=== PATIENT | female | born 1995 | race Caucasian/White ===

== ENCOUNTER 2021-05-14 09:09 | Emergency (ER) | payer OTHER ==
[~2021-05-14] VITALS: Ht 167.6 cm; Wt 88.2 kg
[2021-05-14] MEDS ORDERED: SUMA100T PO (09:26)
[2021-05-14] MEDS ORDERED: METOCLOPRAMIDE HCL 5 MG/ML 2 ML VIAL IVP ONE (10:30)
[2021-05-14] MEDS ORDERED: ACETAMINOPHEN 500 MG TABLET PO ONE (10:30)
[2021-05-14] MEDS ORDERED: SODIUM CHLORIDE 0.9% 1,000 ML IV ONE (10:30)
[2021-05-14] MEDS ORDERED: DiphenhydrAMINE HCL 50 MG/ML VIAL IVP ONE (10:30)
[2021-05-14] MEDS ORDERED: ONDANSETRON HCL 4 MG/2 ML VIAL IVP ONE (10:30)
[2021-05-14 10:53] LABS: BASOPHILS % (AUTO) 0.4 % (0.0-2.0); HEMATOCRIT 42.4 % (36-46); HEMOGLOBIN 14.3 g/dL (12.0-16.0); LYMPHOCYTES # (AUTO) 1.7 K/uL (1.0-4.8); LYMPHOCYTES % (AUTO) 19.3 % (22.0-44.0); MEAN CORPUSCULAR HEMOGLOBIN 29.7 pg (26.0-34.0); MEAN CORPUSCULAR HGB CONC 33.8 G/dL (31.0-37.0); MEAN CORPUSCULAR VOLUME 88 fL (80-100); MONOCYTES # (AUTO) 0.4 K/uL (0.1-1.0); MONOCYTES % (AUTO) 4.2 % (2.0-9.0); NEUTROPHILS # (AUTO) 6.6 K/uL (1.8-7.7); NEUTROPHILS % (AUTO) 75.1 % (40.0-70.0); PLATELET COUNT (AUTO) 320 K/uL (150-450); RED BLOOD CELL COUNT(AUTO) 4.82 MIL/uL (4.00-5.20); RED CELL DISTRIBUTION WIDTH 12.1 % (11.5-14.5)
[2021-05-14 11:03] LABS: ANION GAP 7 mmol/L (8-16); CALCIUM, TOTAL 8.8 mg/dL (8.8-10.5); CARBON DIOXIDE 27 mmol/L (22-29); CHLORIDE 104 mmol/L (98-107); CREATININE 0.76 mg/dL (0.60-1.30); GLOMERULAR FILTR. RATE CALC > 60 mL/min (>60); GLUCOSE,RANDOM 96 mg/dL (70-110); POTASSIUM 3.7 mmol/L (3.5-5.1); SODIUM SERUM 138 mmol/L (136-145); UREA NITROGEN, BLOOD 9 mg/dL (7-18)
[2021-05-14 11:13] LABS: ALANINE AMINOTRANSFERASE 27 U/L (12-78); ALKALINE PHOSPHATASE 64 U/L (46-116); ASPARTATE AMINOTRANSFERASE 18 U/L (15-37); BILIRUBIN,TOTAL 0.7 mg/dL (0.1-1.0); HCG,QUANTITATIVE < 1 mIU/mL (0-6); LIPASE 78 U/L (73-393); TOTAL PROTEIN, SERUM 7.9 g/dL (6.4-8.2)
[2021-05-14 11:20] VITALS: BP 111/64
[2021-05-14 11:22] LABS: APPEARANCE,URINE CLEAR (CLEAR); BILIRUBIN,URINE NEGATIVE (NEGATIVE); GLUCOSE, URINE (UA) NEGATIVE (NEGATIVE); KETONES,URINE NEGATIVE (NEGATIVE); LEUKOCYTE ESTERASE ,URINE NEGATIVE (NEGATIVE); NITRATE,URINE NEGATIVE (NEGATIVE); OCCULT BLOOD,URINE NEGATIVE (NEGATIVE); PH,URINE 7.5 (5.0-8.0); PROTEIN,URINE NEGATIVE (NEGATIVE)
== END 2021-05-14 12:38 | disposition home or self-care (01) ==
LOC: EMS 09:09
DX: G43.909 Migraine, unspecified, not intractable, without status migrainosus (principal); Z79.899 Other long term (current) drug therapy
CPT/HCPCS: 36415; 70450; 80053; 81003; 83690; 84702; 85025; 96361; 96374; 96375; 99284; J1200; J2405; J2765; J7030

== ENCOUNTER 2021-06-04 17:19 | Emergency (ER) | payer OTHER ==
[~2021-06-04] VITALS: Ht 167.6 cm; Wt 87.3 kg
[~2021-06-04 17:19] MED LIST: SUMA100T PO
[2021-06-04] MEDS ORDERED: DiphenhydrAMINE HCL 25 MG CAPSULE PO ONE (18:00)
[2021-06-04] MEDS ORDERED: DEXAMETHASONE 4 MG TABLET PO ONE (19:15)
[2021-06-04] MEDS ORDERED: DEXAMETHASONE SOD PHOS 4 MG/ML 5 ML VIAL IVP ONE (19:15)
[2021-06-04 19:17] VITALS: BP 109/64
== END 2021-06-04 19:35 | disposition home or self-care (01) ==
LOC: EMS 17:21
DX: L50.9 Urticaria, unspecified (principal); G43.909 Migraine, unspecified, not intractable, without status migrainosus
CPT/HCPCS: 99283; J8540

== ENCOUNTER 2021-08-30 15:48 | Emergency (ER) | payer OTHER ==
[~2021-08-30] VITALS: Ht 170.2 cm; Wt 90.0 kg
[2021-08-30 17:04] VITALS: BP 123/72
[2021-08-30 17:18] LABS: COVID AG,FIA SOURCE NASOPHARYNGEAL
[2021-08-30 17:44] LABS: INFLUENZA TYPE A NEGATIVE FOR TYPE A (NEGATIVE); INFLUENZA TYPE B NEGATIVE FOR TYPE B (NEGATIVE)
== END 2021-08-30 18:19 | disposition home or self-care (01) ==
LOC: EMS 15:51
DX: J06.9 Acute upper respiratory infection, unspecified (principal); Z20.822 Contact with and (suspected) exposure to COVID-19
CPT/HCPCS: 87804; 99283

== ENCOUNTER 2022-09-11 18:45 | Emergency (ER) | payer OTHER ==
[~2022-09-11] VITALS: Ht 170.2 cm; Wt 54.5 kg
[2022-09-11 18:53] LABS: COVID AG,FIA SOURCE NASAL SWAB
[2022-09-11 19:13] LABS: INFLUENZA TYPE A NEGATIVE FOR TYPE A (NEGATIVE); INFLUENZA TYPE B POSITIVE FOR TYPE B (NEGATIVE)
[2022-09-11] MEDS ORDERED: ACETAMINOPHEN 325 MG TABLET PO ONE (19:15)
[2022-09-11] MEDS ORDERED: ONDANSETRON HCL 4 MG TABLET PO ONE (20:15)
[2022-09-11 21:29] VITALS: BP 99/63
[2022-09-11] MEDS ORDERED: ONDA-104 PO (22:15)
== END 2022-09-12 06:35 | disposition home or self-care (01) ==
LOC: EMS 18:47
DX: J10.1 Influenza due to other identified influenza virus with other respiratory manifestations (principal); G43.909 Migraine, unspecified, not intractable, without status migrainosus; Z20.822 Contact with and (suspected) exposure to COVID-19
CPT/HCPCS: 99284; 71045; 87426; 87804; Q0162

== ENCOUNTER 2023-09-21 12:42 | Inpatient (IN) | payer OTHER ==
[~2023-09-21] VITALS: Ht 170.2 cm; Wt 68.2 kg
[~2023-09-21 12:42] MED LIST changes: +ONDA-104 PO; -SUMA100T PO; +SUMA100T21 PO
[2023-09-21] MEDS ORDERED: TOPI25 PO (12:52)
[2023-09-21] MEDS ORDERED: LAMO25TA36 PO (12:52)
[2023-09-21] MEDS ORDERED: SODIUM CHLORIDE 0.9% 1,000 ML IV ONE (14:30)
[2023-09-21 14:55] LABS: BASOPHILS % (AUTO) 0.7 % (0.0-2.0); EOSINOPHILS % (AUTO) 2.1 % (1.0-6.0); HEMATOCRIT 40.8 % (36-46); LYMPHOCYTES # (AUTO) 0.4 K/uL (1.0-4.8); LYMPHOCYTES % (AUTO) 6.4 % (22.0-44.0); MEAN CORPUSCULAR HEMOGLOBIN 30.4 pg (26.0-34.0); MEAN CORPUSCULAR HGB CONC 34.3 G/dL (31.0-37.0); MEAN CORPUSCULAR VOLUME 88 fL (80-100); MONOCYTES # (AUTO) 0.3 K/uL (0.1-1.0); MONOCYTES % (AUTO) 4.2 % (2.0-9.0); NEUTROPHILS # (AUTO) 5.8 K/uL (1.8-7.7); NEUTROPHILS % (AUTO) 86.6 % (40.0-70.0); PLATELET COUNT (AUTO) 239 K/uL (150-450); RED BLOOD CELL COUNT(AUTO) 4.62 MIL/uL (4.00-5.20); RED CELL DISTRIBUTION WIDTH 12.1 % (11.5-14.5); WHITE BLOOD COUNT (AUTO) 6.7 K/uL (4.5-11.0)
[2023-09-21 14:57] LABS: ERYTHROCYTE SEDIMENTATION RATE 11 MM/HR (0-20)
[2023-09-21 15:03] LABS: COVID AG,FIA SOURCE NASAL SWAB
[2023-09-21 15:08] LABS: ANION GAP 10 mmol/L (8-16); CALCIUM, TOTAL 8.8 mg/dL (8.8-10.5); CARBON DIOXIDE 23 mmol/L (22-29); CHLORIDE 103 mmol/L (98-107); CREATININE 0.84 mg/dL (0.60-1.30); GLOMERULAR FILTR. RATE CALC > 60 mL/min (>60); GLUCOSE,RANDOM 106 mg/dL (70-110); POTASSIUM 3.7 mmol/L (3.5-5.1); SODIUM SERUM 136 mmol/L (136-145); UREA NITROGEN, BLOOD 8 mg/dL (7-18)
[2023-09-21 15:13] LABS: ALANINE AMINOTRANSFERASE 20 U/L (12-78); ALBUMIN 3.8 g/dL (3.4-5.0); ALKALINE PHOSPHATASE 71 U/L (46-116); ASPARTATE AMINOTRANSFERASE 15 U/L (15-37); BILIRUBIN,TOTAL 0.3 mg/dL (0.1-1.0); TOTAL PROTEIN, SERUM 7.8 g/dL (6.4-8.2)
[2023-09-21 15:28] LABS: SARS-COV2 (COVID) ANTIGEN,FIA Negative (Negative)
[2023-09-21 15:29] LABS: PREGNANCY RESULT, SERUM NEGATIVE (NEGATIVE)
[2023-09-21 15:44] LABS: TROPONIN I-HIGH SENSITIVITY 5 ng/L (<51)
[2023-09-21 15:59] LABS: RAPID PLASMA REAGIN NONREACTIVE (NONREACTIVE)
[2023-09-21] MEDS ORDERED: ACETAMINOPHEN 500 MG TABLET PO ONE (16:00)
[2023-09-21] MEDS ORDERED: HYDROCODONE/ACETAMINOPHEN 5-325 MG TABLET PO PRN (16:30)
[2023-09-21] MEDS ORDERED: MORPHINE SULFATE 2 MG/ML SYRINGE IVP PRN (16:30)
[2023-09-21] MEDS ORDERED: ONDANSETRON HCL 4 MG/2 ML VIAL IVP PRN (16:30)
[2023-09-21] MEDS ORDERED: ZOLPIDEM TARTRATE 5 MG TABLET PO PRN (16:30)
[2023-09-21] MEDS ORDERED: ACETAMINOPHEN 325 MG TABLET PO PRN (16:30)
[2023-09-21] MEDS ORDERED: BISACODYL 10 MG RECTAL RECTAL SUPPOSITORY PR PRN (16:30)
[2023-09-21] MEDS ORDERED: MAGNESIUM HYDROXIDE SUSPENSION 30 ML UDCUP PO PRN (16:30)
[2023-09-21] MEDS ORDERED: PredniSONE 20 MG TABLET PO ONE (16:30)
[2023-09-21] MEDS: DOCUSATE SODIUM 100 MG CAPSULE PO SCH (20:55)
[2023-09-21] MEDS: HydrOXYzine HCL 25 MG TABLET PO SCH (21:04)
[2023-09-22 06:28] LABS: BASOPHILS % (AUTO) 0.4 % (0.0-2.0); EOSINOPHILS % (AUTO) 0.3 % (1.0-6.0); HEMATOCRIT 39.3 % (36-46); HEMOGLOBIN 13.7 g/dL (12.0-16.0); LYMPHOCYTES # (AUTO) 0.7 K/uL (1.0-4.8); LYMPHOCYTES % (AUTO) 9.3 % (22.0-44.0); MEAN CORPUSCULAR HEMOGLOBIN 30.6 pg (26.0-34.0); MEAN CORPUSCULAR HGB CONC 34.8 G/dL (31.0-37.0); MEAN CORPUSCULAR VOLUME 88 fL (80-100); MONOCYTES # (AUTO) 0.3 K/uL (0.1-1.0); MONOCYTES % (AUTO) 3.8 % (2.0-9.0); NEUTROPHILS # (AUTO) 6.4 K/uL (1.8-7.7); PLATELET COUNT (AUTO) 261 K/uL (150-450); RED BLOOD CELL COUNT(AUTO) 4.47 MIL/uL (4.00-5.20); RED CELL DISTRIBUTION WIDTH 12.1 % (11.5-14.5); WHITE BLOOD COUNT (AUTO) 7.4 K/uL (4.5-11.0)
[2023-09-22 06:29] LABS: NEUTROPHILS % (AUTO) 86.2 % (40.0-70.0)
[2023-09-22 06:36] LABS: ANION GAP 8 mmol/L (8-16); CALCIUM, TOTAL 8.8 mg/dL (8.8-10.5); CARBON DIOXIDE 25 mmol/L (22-29); CHLORIDE 105 mmol/L (98-107); CREATININE 0.72 mg/dL (0.60-1.30); GLOMERULAR FILTR. RATE CALC > 60 mL/min (>60); GLUCOSE,RANDOM 116 mg/dL (70-110); POTASSIUM 3.8 mmol/L (3.5-5.1); SODIUM SERUM 138 mmol/L (136-145); UREA NITROGEN, BLOOD 8 mg/dL (7-18)
[2023-09-22] MEDS: PredniSONE 20 MG TABLET PO SCH (08:15)
[2023-09-22] MEDS: HydrOXYzine HCL 25 MG TABLET PO SCH ×2 (08:15→21:54)
[2023-09-22] MEDS: DOCUSATE SODIUM 100 MG CAPSULE PO SCH ×2 (08:19→21:00)
[2023-09-22] MEDS: PANTOPRAZOLE SODIUM 40 MG DR TABLET PO SCH (08:20)
[2023-09-22 10:00] VITALS: BP 121/69; PULSE 89; RESP 18; TEMP 97.6
[2023-09-22] MEDS: CLOBETASOL 0.05% 15 GM CREAM TP SCH ×3 (11:23→21:55)
[2023-09-22 12:46] VITALS: BP 105/55; PULSE 78; RESP 18; TEMP 98
[2023-09-22 15:36] VITALS: BP 102/53; PULSE 72; RESP 18; TEMP 97.4
[2023-09-22 19:27] VITALS: BP 117/65; PULSE 83; RESP 18; TEMP 98.4
[2023-09-22] MEDS: HYDROCORTISONE 2.5% 30 GM CREAM TP SCH (21:55)
[2023-09-22 23:21] VITALS: BP 109/55; PULSE 57; RESP 18; TEMP 98.2
[2023-09-23 04:37] VITALS: BP 93/47; PULSE 58; RESP 18; TEMP 98.1
[2023-09-23 06:39] LABS: BASOPHILS % (AUTO) 0.8 % (0.0-2.0); HEMATOCRIT 37.4 % (36-46); HEMOGLOBIN 13.2 g/dL (12.0-16.0); LYMPHOCYTES # (AUTO) 1.4 K/uL (1.0-4.8); LYMPHOCYTES % (AUTO) 17.2 % (22.0-44.0); MEAN CORPUSCULAR HGB CONC 35.2 G/dL (31.0-37.0); MEAN CORPUSCULAR VOLUME 88 fL (80-100); MONOCYTES # (AUTO) 0.7 K/uL (0.1-1.0); MONOCYTES % (AUTO) 9.1 % (2.0-9.0); NEUTROPHILS # (AUTO) 5.6 K/uL (1.8-7.7); NEUTROPHILS % (AUTO) 68.9 % (40.0-70.0); PLATELET COUNT (AUTO) 252 K/uL (150-450); RED BLOOD CELL COUNT(AUTO) 4.25 MIL/uL (4.00-5.20); RED CELL DISTRIBUTION WIDTH 11.9 % (11.5-14.5); WHITE BLOOD COUNT (AUTO) 8.1 K/uL (4.5-11.0)
[2023-09-23 07:03] LABS: ANION GAP 10 mmol/L (8-16); CALCIUM, TOTAL 8.7 mg/dL (8.8-10.5); CARBON DIOXIDE 26 mmol/L (22-29); CHLORIDE 106 mmol/L (98-107); CREATININE 0.84 mg/dL (0.60-1.30); GLOMERULAR FILTR. RATE CALC > 60 mL/min (>60); GLUCOSE,RANDOM 96 mg/dL (70-110); POTASSIUM 3.6 mmol/L (3.5-5.1); SODIUM SERUM 142 mmol/L (136-145); UREA NITROGEN, BLOOD 11 mg/dL (7-18)
[2023-09-23 07:57] VITALS: BP 118/75; PULSE 78; RESP 17; TEMP 98.6
[2023-09-23] MEDS: PredniSONE 20 MG TABLET PO SCH (08:43)
[2023-09-23] MEDS: HydrOXYzine HCL 25 MG TABLET PO SCH ×2 (08:44→20:34)
[2023-09-23] MEDS: DOCUSATE SODIUM 100 MG CAPSULE PO SCH ×2 (08:44→20:43)
[2023-09-23] MEDS: PANTOPRAZOLE SODIUM 40 MG DR TABLET PO SCH (08:44)
[2023-09-23] MEDS: CLOBETASOL 0.05% 15 GM CREAM TP SCH ×3 (10:37→20:34)
[2023-09-23] MEDS: HYDROCORTISONE 2.5% 30 GM CREAM TP SCH ×2 (10:37→20:34)
[2023-09-23 11:56] VITALS: BP 108/65; PULSE 70; RESP 18; TEMP 98.4
[2023-09-23 15:20] VITALS: BP 114/63; PULSE 76; RESP 17; TEMP 98.2
[2023-09-23 20:13] VITALS: BP 113/68; PULSE 71; RESP 17; TEMP 98.5
[2023-09-24 00:10] VITALS: BP 120/72; PULSE 70; RESP 18; TEMP 98.1
[2023-09-24 06:03] VITALS: BP 127/54; PULSE 62; RESP 17; TEMP 98.2
[2023-09-24 06:47] LABS: BASOPHILS % (AUTO) 0.4 % (0.0-2.0); EOSINOPHILS % (AUTO) 2.1 % (1.0-6.0); HEMATOCRIT 37.8 % (36-46); HEMOGLOBIN 13.1 g/dL (12.0-16.0); LYMPHOCYTES # (AUTO) 1.4 K/uL (1.0-4.8); LYMPHOCYTES % (AUTO) 17.6 % (22.0-44.0); MEAN CORPUSCULAR HEMOGLOBIN 30.4 pg (26.0-34.0); MEAN CORPUSCULAR HGB CONC 34.6 G/dL (31.0-37.0); MEAN CORPUSCULAR VOLUME 88 fL (80-100); MONOCYTES # (AUTO) 0.7 K/uL (0.1-1.0); MONOCYTES % (AUTO) 8.7 % (2.0-9.0); NEUTROPHILS # (AUTO) 5.6 K/uL (1.8-7.7); NEUTROPHILS % (AUTO) 71.2 % (40.0-70.0); PLATELET COUNT (AUTO) 256 K/uL (150-450); RED BLOOD CELL COUNT(AUTO) 4.31 MIL/uL (4.00-5.20); WHITE BLOOD COUNT (AUTO) 7.9 K/uL (4.5-11.0)
[2023-09-24 06:56] LABS: ANION GAP 10 mmol/L (8-16); CALCIUM, TOTAL 8.5 mg/dL (8.8-10.5); CARBON DIOXIDE 27 mmol/L (22-29); CHLORIDE 107 mmol/L (98-107); CREATININE 0.64 mg/dL (0.60-1.30); GLOMERULAR FILTR. RATE CALC > 60 mL/min (>60); GLUCOSE,RANDOM 97 mg/dL (70-110); POTASSIUM 3.6 mmol/L (3.5-5.1); SODIUM SERUM 144 mmol/L (136-145); UREA NITROGEN, BLOOD 9 mg/dL (7-18)
[2023-09-24 08:31] VITALS: BP 111/68; PULSE 60; RESP 18; TEMP 98
[2023-09-24] MEDS: PredniSONE 20 MG TABLET PO SCH (08:36)
[2023-09-24] MEDS: PANTOPRAZOLE SODIUM 40 MG DR TABLET PO SCH (08:36)
[2023-09-24] MEDS: HYDROCORTISONE 2.5% 30 GM CREAM TP SCH (08:37)
[2023-09-24] MEDS: CLOBETASOL 0.05% 15 GM CREAM TP SCH (08:37)
[2023-09-24] MEDS: DOCUSATE SODIUM 100 MG CAPSULE PO SCH (08:37)
[2023-09-24] MEDS: HydrOXYzine HCL 25 MG TABLET PO SCH (08:37)
[2023-09-24 10:55] VITALS: BP 118/70; PULSE 64; RESP 18; TEMP 98.2
[2023-09-24] MEDS ORDERED: HYDR30CR3 TP (11:45)
[2023-09-24] MEDS ORDERED: CLOB15CR10 TP (11:45)
[2023-09-24] MEDS ORDERED: HYDR-4527 PO (11:45)
[2023-09-24] MEDS ORDERED: PRED-729 PO (11:45)
== END 2023-09-24 14:30 | disposition home or self-care (01) | DRG 607 ==
LOC: EMS 12:43 → AHU 09-22 07:17 → 5S 09-22 08:06
PROVIDERS: ADMIT Internal Medicine; ATTEND Internal Medicine
DX: L27.0 Generalized skin eruption due to drugs and medicaments taken internally (principal); T42.6X5A Adverse effect of other antiepileptic and sedative-hypnotic drugs, initial encounter; Z20.822 Contact with and (suspected) exposure to COVID-19; G43.909 Migraine, unspecified, not intractable, without status migrainosus; F31.9 Bipolar disorder, unspecified; Y92.89 Other specified places as the place of occurrence of the external cause; Z79.899 Other long term (current) drug therapy; Z90.49 Acquired absence of other specified parts of digestive tract
CPT/HCPCS: 71045; 80048; 80053; 80175; 84484; 84703; 85025; 85651; 86592; 93005; 99285; 36415-L1; 36415-TC

== ENCOUNTER 2024-07-15 01:19 | Emergency (ER) | payer OTHER ==
[~2024-07-15] VITALS: Ht 167.6 cm; Wt 65.9 kg
[~2024-07-15 01:19] MED LIST changes: +CLOB15CR10 TP; +HYDR-4527 PO; +HYDR30CR3 TP; +PRED-729 PO; +TOPI25 PO
[2024-07-15 01:22] VITALS: TEMP 97.8
[2024-07-15] MEDS: FAMOTIDINE 20 MG TABLET PO ONE (02:07)
[2024-07-15] MEDS: IBUPROFEN 400 MG TABLET PO ONE (02:08)
[2024-07-15] MEDS: LORazepam 1 MG TABLET PO ONE (02:08)
[2024-07-15 02:24] VITALS: BP 120/69; PULSE 75; RESP 18; O2SAT 99
[2024-07-15 02:24] LABS: TROPONIN I-HIGH SENSITIVITY 6 ng/L (<51)
[2024-07-15] MEDS: MAG HYDROX/ALUMINUM HYD/SIMETH ES 30 ML SUSPENSION UDCUP PO ONE (03:02)
[2024-07-15] MEDS: METHOCARBAMOL 500 MG TABLET PO ONE (03:02)
[2024-07-15] MEDS ORDERED: METH-659 PO (03:31)
[2024-07-15] MEDS ORDERED: FAMO20 PO (03:31)
== END 2024-07-15 04:08 | disposition home or self-care (01) ==
LOC: EMS 01:20
DX: R07.89 Other chest pain (principal); K21.9 Gastro-esophageal reflux disease without esophagitis; Z88.5 Allergy status to narcotic agent; Z90.49 Acquired absence of other specified parts of digestive tract; Z79.899 Other long term (current) drug therapy
CPT/HCPCS: 84484; 93005; 99284